=== PATIENT | male | born 1950 | race Caucasian/White ===

== ENCOUNTER → 2019-01-06 | Outpatient (CLI) | payer MEDICARE ==
[2019-01-07 10:21] LABS: Protein S Antigen 83 % (50 - 140)
== END | disposition home or self-care (01) ==
LOC: LABWHC1 10:17
PROVIDERS: ATTEND Internal Medicine
DX: D68.8 Other specified coagulation defects (principal)
CPT/HCPCS: 36415; 81240; 83090; 85300; 85303; 85305; 85384

== ENCOUNTER → 2019-11-09 | Outpatient (CLI) | payer MEDICARE | END | disposition home or self-care (01) | LOC: LABWHC1 07:47 | PROVIDERS: ATTEND Internal Medicine | DX: Z11.59 Encounter for screening for other viral diseases (principal) | CPT/HCPCS: 87635 ==

== ENCOUNTER → 2020-01-22 | Outpatient (CLI) | payer MEDICARE ==
--- NOTE | 2020-01-22 08:44 | MR ---
EXAMINATION TYPE: MR brain wo con DATE OF EXAM: 01/22/2020 COMPARISON: NONE HISTORY: Transient unilateral visual field cut rt eye only, TIA TECHNIQUE: T1-weighted sagittal, T2, FLAIR, and diffusion axial, and T2 coronal coronal views of the brain are submitted. FINDINGS: There is no evidence of acute ischemia. The ventricles, basal cisterns, and sulci overlying the conv exities are consistent with the patient's age. There is no mass effect. Craniocervical junction maintained. Sella turcica has a normal appearance. Mild confluent signal surr ounding the lateral ventricles compatible with remote ischemic white matter change greater along the atrium of the right lateral ventricle. Tiny punctate area of abnormal signal involving the hina too s mall to characterize but likely related to tiny lacunar infarct. No cerebellopontine angle mass. Changes of chronic sinusitis noted. Orbits are symmetric in appearanc e. Trace amount of fluid seen in the mastoid air cells. IMPRESSION: 1. No acute intracranial process. Mild nonspecific white matter changes most marked adjacent to the a trium of the right lateral ventricle. Findings most common seen with with remote white matter ischemi a. 2. Changes of chronic sinusitis.
--- NOTE | 2020-01-22 09:00 | MR ---
EXAMINATION TYPE: MR [place] \head wo/and neck wo/w con DATE OF EXAM: 01/22/2020 COMPARISON: NONE HISTORY: Transient unilateral visual field cut rt eye only, TIA TECHNIQUE: Utilizing 3-D [id number] intracranial MRA of the [place] and neck was performed. 7 mL o f gadolinium gadavist administered. FINDINGS: The vertebrobasilar and carotid systems are patent. 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 Mild fullness to the anterior communicating artery without evidence of disc rete aneurysm. Ophthalmic arteries are normal caliber. Visualized segments appear to be intact. Vertebral basilar and visualized distal carotid systems are widely patent. Middle cerebral, anterior cerebral and visualized posterior cerebral arteries are menendez nt. Carotid bifurcations are widely patent with no significant stenosis left vertebral artery slightly do minant. IMPRESSION: 1. Mild fullness to the anterior communicating artery but no sizable aneurysm. Intracranial vasculatu re appears patent. 2. 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 Carotid bifurcations are widely patent with no significant stenosis.
== END | disposition home or self-care (01) ==
LOC: RADMRIMAIN 07:34
PROVIDERS: ATTEND Psychiatry & Neurology Neurology
DX: I77.89 Other specified disorders of arteries and arterioles (principal)
CPT/HCPCS: 70544; 70549; 70551; A9585